=== PATIENT | female | born 1995 | race Two or more races ===

== ENCOUNTER → 2024-07-27 | Outpatient (CLI) | payer OTHER | LOC: M RAD 08:02 | PROVIDERS: ATTEND Otolaryngology | DX: J32.0 Chronic maxillary sinusitis (principal) ==

== ENCOUNTER 2024-08-15 08:48 | Day surgery (SDC) | payer OTHER ==
[~2024-08-15] VITALS: Ht 157.5 cm; Wt 48.1 kg
[~2024-08-15 08:48] MED LIST: BENA25CA4 PO; CYCL-707 PO; EFFE150C3 PO; EFFE75CA2 PO; FLUD0.1T PO; GABA-284 PO; KLON0.5T8 PO; LORA-243 PO; PROA1AER2 IN; SUMA50TA2 PO; TIZA2CAP PO; TOPI-257 PO; TRAZ-257 PO
[2024-08-15] MEDS ORDERED: LR 1,000 ML IV SCH (08:55)
[2024-08-15] MEDS ORDERED: propofoL 200 MG/20 ML VIAL As Ordered ONE (10:00)
[2024-08-15] MEDS ORDERED: ACETAMINOPHEN 1000MG/100ML IV BAG As Ordered ONE (10:01)
[2024-08-15] MEDS ORDERED: ONDANSETRON 4MG 2ML VIAL As Ordered ONE (10:01)
[2024-08-15] MEDS ORDERED: ROCURONIUM BROMIDE 50MG/5ML VIAL As Ordered ONE (10:01)
[2024-08-15] MEDS ORDERED: LIDOCAINE 2% 100MG/5ML SDV (FOR ANES.) As Ordered ONE (10:01)
[2024-08-15] MEDS ORDERED: MIDAZOLAM INJ 2MG/2ML VIAL As Ordered ONE (10:04)
[2024-08-15] MEDS ORDERED: fentaNYL 100 MCG/2 ML INJECTION As Ordered ONE (10:04)
[2024-08-15] MEDS ORDERED: diphenhydrAMINE 50MG/ML VIAL As Ordered ONE (10:37)
[2024-08-15] MEDS ORDERED: SUGAMMADEX SODIUM 500 MG/5 ML VIAL (BRIDION) As Ordered ONE (10:42)
[2024-08-15] MEDS: CIPRODEX OTIC SUSP 7.5ML As Ordered ONE (10:43)
[2024-08-15] MEDS: SCOPOLAMINE 1MG TRANSDERMAL PATCH As Ordered ONE (10:43)
[2024-08-15] MEDS: OXYMETAZOLINE 0.05% NASAL SPRAY As Ordered ONE (10:58)
[2024-08-15] MEDS: BACITRACIN OINTMENT 30GM TUBE As Ordered ONE (11:07)
[2024-08-15] MEDS ORDERED: fentaNYL 100 MCG/2 ML INJECTION IV PRN (11:15)
[2024-08-15] MEDS: ONDANSETRON 4MG 2ML VIAL IV PRN (11:38)
[2024-08-15] MEDS ORDERED: dexmedeTOMIDine (4MCG/ML)200MCG/50ML BTL (PRECEDEX) As Ordered ONE (11:40)
[2024-08-15] MEDS: HYDROMORPHONE HCL 0.5 MG/ 0.5 ML SYRINGE IV PRN (11:44)
[2024-08-15] MEDS ORDERED: HYDROmorphone HCL 2MG/ML 1ML VIAL As Ordered ONE (11:44)
[2024-08-15] MEDS: oxyCODONE 5MG TAB PO PRN (12:04)
[2024-08-15 12:31] VITALS: BP 98/53; TEMP 97.5; O2SAT 100
== END 2024-08-15 13:00 | disposition home or self-care (01) ==
LOC: M SDC 08:48 → EDUNIT# 10:30 → M SDC 13:00
PROVIDERS: ATTEND Otolaryngology
DX: J35.01 Chronic tonsillitis (principal); H66.93 Otitis media, unspecified, bilateral; R04.0 Epistaxis; G90.A Postural orthostatic tachycardia syndrome [POTS]; J45.909 Unspecified asthma, uncomplicated; K76.0 Fatty (change of) liver, not elsewhere classified; F17.290 Nicotine dependence, other tobacco product, uncomplicated; Z79.899 Other long term (current) drug therapy; Z88.8 Allergy status to other drugs, medicaments and biological substances; Z91.018 Allergy to other foods
CPT/HCPCS: 30901; 42826; 69436; 81025; 88302; J0131; J1100; J1171; J1200; J2250; J2405; J3010

== ENCOUNTER → 2024-10-18 | Outpatient (REF) | LOC: M PLAIMG 14:59 | PROVIDERS: ATTEND Internal Medicine | DX: M54.50 Low back pain, unspecified (principal) ==

== ENCOUNTER → 2025-01-18 | Outpatient (REF) | payer OTHER ==
[2025-01-18 17:51] LABS: BASO # 0.0 10^3/uL (0.0-0.2); BASO % 0.0 % (0.0-1.0); EOS # 0.0 10^3/uL (0.0-0.5); EOS % 0.0 % (0.0-3.0); LYMPH # 2.2 10^3/uL (1.5-5.0); LYMPH % 40.3 % (24.0-44.0); MONO # 0.6 10^3/uL (0.0-0.8); MONO % 11.5 % (2.0-8.0); NEUTROPHILS # 2.6 10^3/uL (1.5-8.5); NEUTROPHILS % 48.0 % (36.0-66.0); PLATELET COUNT, AUTOMATED 234 10^3/uL (150-450)
[2025-01-18 17:54] LABS: ALT/SGPT 20 U/L (7.0-40); AST/SGOT 14 U/L (<34); C REACTIVE PROTEIN QUANTITATIV < 0.50 MG/DL (<1.0); CALCIUM LEVEL 8.8 MG/DL (8.5-10.1); CARBON DIOXIDE LEVEL 25 MMOL/L (20-31); CHLORIDE LEVEL 108 MMOL/L (98-107); CREATININE FOR GFR 0.69 MG/DL (0.55-1.30); GLOMERULAR FILTRATION RATE > 90.0 (>60); POTASSIUM SERUM 4.0 MMOL/L (3.5-5.1); SODIUM LEVEL 142 MMOL/L (136-145)
[2025-01-18 18:13] LABS: ERYTHROCYTE SEDIMENTATION RATE 8 mm/hr (0-20)
[2025-01-22 11:06] LABS: SSA SJOGRENS A <1.0 NEG AI (<1.0 NEG); SSB SJOGRENS B <1.0 NEG AI (<1.0 NEG)
== END ==
LOC: M SFHCRHEU 15:22
PROVIDERS: ATTEND Internal Medicine Rheumatology
DX: R21 Rash and other nonspecific skin eruption (principal); R53.83 Other fatigue; R52 Pain, unspecified; I73.00 Raynaud's syndrome without gangrene; R41.89 Other symptoms and signs involving cognitive functions and awareness; R41.3 Other amnesia; M35.7 Hypermobility syndrome